=== PATIENT | male | born 1970 | race Caucasian/White ===

== ENCOUNTER 2017-04-25 23:03 | Inpatient (IN) | END 2017-04-30 21:00 | disposition home or self-care (01) | DRG 133 ==

== ENCOUNTER 2017-10-10 10:43 | Inpatient (IN) | END 2017-10-15 21:25 | disposition home or self-care (01) | DRG 872 ==

== ENCOUNTER → 2017-10-25 | Emergency (ER) | END | disposition home or self-care (01) ==

== ENCOUNTER 2017-10-28 20:45 | Emergency (ER) | END 2017-10-28 22:22 | disposition home or self-care (01) ==